=== PATIENT | male | born 1945 | race Asian ===

== ENCOUNTER 2019-07-07 08:15 | Day surgery (SDC) | payer OTHER ==
[~2019-07-07] VITALS: Ht 160 cm; Wt 55.8 kg
[2019-07-07] MEDS ORDERED: MIDAZOLAM 2 MG/2 ML VIAL ONE ×2 (12:32)
[2019-07-07] MEDS ORDERED: fentaNYL 0.05 MG/ML VIAL ONE (12:32)
== END 2019-07-07 13:35 | disposition home or self-care (01) ==
LOC: MDS 08:15 → MMU 09:15 → MDS 13:35
PROVIDERS: ATTEND Internal Medicine Gastroenterology
DX: R13.10 Dysphagia, unspecified (principal); K31.89 Other diseases of stomach and duodenum; E03.9 Hypothyroidism, unspecified; I10 Essential (primary) hypertension; E78.00 Pure hypercholesterolemia, unspecified; Z85.21 Personal history of malignant neoplasm of larynx; Z86.73 Personal history of transient ischemic attack (TIA), and cerebral infarction without residual deficits; Z79.82 Long term (current) use of aspirin; Z79.899 Other long term (current) drug therapy; Z98.890 Other specified postprocedural states
CPT/HCPCS: 43235; J2250; J3010